=== PATIENT | female | born 2000 | race American Indian/Alaskan Native ===

== ENCOUNTER 2021-12-12 18:37 | Emergency (ER) | payer OTHER ==
[2021-12-13] MEDS ORDERED: FAMOTIDINE 20 MG TAB PO ONE (00:21)
[2021-12-13] MEDS ORDERED: methylPREDNISolone Sod Succinate 125 MG/2 ML INJ IM ONE (00:21)
[2021-12-13] MEDS ORDERED: diphenhydrAMINE 25 MG CAP PO ONE (00:21)
--- NOTE | 2021-12-13 00:26 | Emergency Department Report ---
ED Allergic Reaction HPI - General Chief complaint: Extremity Injury, Upper Stated complaint: BREAKOUT Source: patient Mode of arrival: Ambulatory Limitations: No Limitations - History of Present Illness Initial Comments: Patient is a 21-year-old female with no past medical history who presents to the ED with complaint of acute onset persistent diffuse itchy erythematous maculo papular urticarial rashes for the last 3 days with no known etiology. Patient states that the rashes and the itching are worsened with heat or a hot environment. Patient states that she has not taken any medications. Patient denies swollen lips or tongue, dysphagia, dysphonia, hoarseness, chest pain and shortness of breath, wheezing, chest tightness, nausea, vomiting, diarrhea or abdominal pain, fever, chills, facial swelling, change in vision or syncope. MD Complaint: allergic reaction, hives, other (diffuse itchy erythematous maculopap[ular urticarial rashes) -: Gradual, days(s) (3) Exposure: unknown Symptoms: rash, itching. denies: facial swelling, lip swelling, difficulty swallowing, difficulty breathing, orolingual swelling, hoarseness, dizziness, nausea, vomiting Treatment Prior to Arrival: none Previous Allergy History: none - Related Data Previous Rx's Medication Instructions Recorded Last Taken Type Famotidine [Pepcid] 20 mg PO BID #60 tablet 12/13/21 Unknown Rx diphenhydrAMINE [Benadryl CAP] 50 mg PO Q8HR PRN #30 capsule 12/13/21 Unknown Rx predniSONE [Deltasone] 60 mg PO QDAY #15 tab 12/13/21 Unknown Rx Allergies Allergy/AdvReac Type Severity Reaction Status Date / Time No Known Allergies Allergy Verified 12/12/21 20:02 ED Review of Systems ROS: Stated complaint: BREAKOUT Other details as noted in HPI Constitutional: denies: chills, fever Eyes: denies: eye pain, eye discharge, vision change ENT: denies: ear pain, throat pain Respiratory: denies: cough, shortness of breath, wheezing Cardiovascular: denies: chest pain, palpitations Endocrine: no symptoms reported Gastrointestinal: denies: abdominal pain, nausea, diarrhea Genitourinary: denies: urgency, dysuria, discharge Musculoskeletal: denies: back pain, joint swelling, arthralgia Skin: rash (Diffuse itchy erythematous urticarial rashes), change in color, pruritus. denies: lesions, change in hair/nails Neurological: denies: headache, weakness, paresthesias Psychiatric: denies: anxiety, depression Hematological/Lymphatic: denies: easy bleeding, easy bruising ED Past Medical Hx - Medications Home Medications: Home Medications Medication Instructions Recorded Confirmed Last Taken Type Famotidine [Pepcid] 20 mg PO BID #60 tablet 12/13/21 Unknown Rx diphenhydrAMINE [Benadryl CAP] 50 mg PO Q8HR PRN #30 capsule 12/13/21 Unknown Rx predniSONE [Deltasone] 60 mg PO QDAY #15 tab 12/13/21 Unknown Rx ED Physical Exam - General Limitations: No Limitations General appearance: alert, in no apparent distress - Head Head exam: Present: atraumatic, normocephalic, normal inspection - Eye Eye exam: Present: normal appearance, PERRL, EOMI Pupils: Present: normal accommodation - ENT ENT exam: Present: normal exam, normal orophraynx, mucous membranes moist, TM's normal bilaterally, normal external ear exam - Neck Neck exam: Present: normal inspection, full ROM - Respiratory Respiratory exam: Present: normal lung sounds bilaterally. Absent: respiratory distress, wheezes, rales, rhonchi, stridor, chest wall tenderness, accessory muscle use, prolonged expiratory, other - Cardiovascular Cardiovascular Exam: Present: normal rhythm, tachycardia, normal heart sounds. Absent: systolic murmur, diastolic murmur, rubs, gallop - GI/Abdominal GI/Abdominal exam: Present: soft, normal bowel sounds. Absent: tenderness, guarding, rigid, hyperactive bowel sounds, hypoactive bowel sounds, organomegaly, mass - Extremities Exam Extremities exam: Present: normal inspection, full ROM, normal capillary refill. Absent: tenderness, pedal edema, joint swelling, calf tenderness - Back Exam Back exam: Present: normal inspection, full ROM. Absent: tenderness, CVA tenderness (R), CVA tenderness (L), muscle spasm, paraspinal tenderness - Neurological Exam Neurological exam: Present: alert, oriented X3, CN II-XII intact, normal gait, reflexes normal - Psychiatric Psychiatric exam: Present: normal affect, normal mood - Skin Skin exam: Present: warm, dry, intact, rash (Diffuse itchy erythematous maculopapular urticarial rashes), erythema, urticaria. Absent: vesicles, pallor, abrasion, ecchymosis, other ED Course Vital Signs 12/12/21 19:23 Temperature 98.5 F Pulse Rate 108 H Respiratory 18 Rate Blood Pressure 145/109 O2 Sat by Pulse 100 Oximetry ED Medical Decision Making - Medical Decision Making This is a 21-year-old female with no past medical history who presents to the ED with complaint of acute onset persistent diffuse itchy erythematous maculopapular urticarial rashes for the last 3 days with no known etiology. Patient states that the rashes and the itching are worsened with heat or a hot environment. Patient states that she has not taken any medications. In the ED, patient is alert and oriented x3 and is not in any distress. Patient was treated for acute allergic reaction with Benadryl, Pepcid and Solu-Medrol. Patient was discharged home on medications and advised to follow-up with her primary care physician in 7 to 10 days for reevaluation or return to the ED immediately if symptoms get worse - Differential Diagnosis Acute urticaria; allergic reaction; irritant dermatitis; Critical care attestation.: If time is entered above; I have spent that time in minutes in the direct care of this critically ill patient, excluding procedure time. ED Disposition Clinical Impression: Acute allergic reaction, Acute urticaria Disposition: 01 HOME / SELF CARE / HOMELESS Is pt being admited?: No Does the pt Need Aspirin: No Condition: Stable Instructions: Allergies, Adult, [id number], Hives, [id number], Rash, Adult, [id number] Additional Instructions: Take medication with food, drink plenty of fluids, follow-up with your primary care physician in 7 to 10 days for reevaluation. Return to the ED immediately if symptoms get worse. Prescriptions: diphenhydrAMINE [Benadryl CAP] 50 mg PO Q8HR PRN #30 capsule PRN Reason: Itching predniSONE [Deltasone] 60 mg PO QDAY #15 tab Famotidine [Pepcid] 20 mg PO BID #60 tablet Referrals: [facility] [Provider Group] - 7-10 days Forms: Work/School Release Form(ED) Time of Disposition: 00:30 Print Language: ROMANIAN
[2021-12-13 01:32] VITALS: BP 127/89
== END 2021-12-13 02:30 | disposition home or self-care (01) ==
LOC: ED 18:37
DX: T78.40XA Allergy, unspecified, initial encounter (principal); L50.9 Urticaria, unspecified
CPT/HCPCS: 96372; 99282; J2930